=== PATIENT | female | born 1990 | race Hispanic/Latino ===

== ENCOUNTER 2017-09-29 12:20 | Emergency (ER) | payer OTHER ==
[2017-09-29 12:57] LABS: Hematocrit 41.3 % (30.3-42.9); Hemoglobin 13.8 gm/dl (10.1-14.3); Mean Corpuscular HGB Conc 33 % (30-34); Mean Corpuscular Hemoglobin 29 pg (28-32); Mean Corpuscular Volume 88 fl (79-97); Platelet Count 313 K/mm3 (140-440); Red Cell Distribution Width 12.1 % (13.2-15.2)
[2017-09-29 13:09] LABS: BUN/Creatinine Ratio 19; Blood Urea Nitrogen 13 mg/dL (7-17); Calcium 9.4 mg/dL (8.4-10.2); Hemolysis Index 3
[2017-09-29 14:44] LABS: Bacteria,Urine 1+ /HPF (Negative); Bilirubin,Urine NEG (Negative); Blood,Urine NEG (Negative); Color,Urine Straw (Yellow); Protein,Urine <15 mg/dL mg/dL (Negative); Urobilinogen,Urine < 2.0 mg/dL (<2.0); WBC,Urine < 1.0 /HPF (0.0-6.0)
[2017-09-29 14:45] LABS: RBC,Urine < 1.0 /HPF (0.0-6.0)
--- NOTE | 2017-09-29 16:43 | Emergency Department Report ---
ED Seizure HPI - General Chief Complaint: Syncope Stated Complaint: SYNCOPE Time Seen by Provider: 09/29/17 16:16 Source: patient Mode of arrival: Ambulatory Limitations: No Limitations - History of Present Illness Initial Comments: Mrs. King is a healthy 27-year-old female who presents after possible seizure on a flight from [place]. Her witnessed the episode. Just prior to the episode she felt ill. She felt nauseous. He then witnessed her eyes rolling back into the back of her head. Herright side became tense. She was dazed after the episode. She felt as if she may have had mild urinary incontinence. The episode occurred during the middle of the . The crew continued on to [place]. Her is a [employer] pilot. He agreed with continuing onto [place]. She feels well now. She feels a little tired. She woke up 3 AM. She denies chest pain. Denies shortness of breath. Denies palpitations. She takes meloxicam intermittently for knee pain related to physical activity. She is a runner. She takes oral contraceptive medications. She's been taking these pills for 5 years. She did miss 2 days of medications. She feels this is the possible reason she missed her period. Recently she had more severe menstrual cramps than normal. She took ibuprofen last night. She denies head injury. She has had a syncopal episode 6-7 years ago. At that instance, sShe recalls standing up and then passing out while getting out of the bath. Family history notable for grandfather epilepsy. Mother has lupus and Sincere 's thyroiditis. MD Complaint: possible seizure Description of Episode: loss of consciousness, tonic-clonic movement, bladder incontinence -: second(s) (15) Witnessed:: Yes Trauma: No Seizure History: none Place: other (airplane during flight) Possible Precipitating Event: lack of sleep Associated Symptoms: denies other symptoms Treatments Prior to Arrival: none - Related Data Allergies Allergy/AdvReac Type Severity Reaction Status Date / Time No Known Allergies Allergy Unverified 09/29/17 12:28 ED Review of Systems ROS: Stated complaint: SYNCOPE Other details as noted in HPI Comment: All other systems reviewed and negative Constitutional: denies: fever, malaise Respiratory: denies: cough Cardiovascular: denies: chest pain ED Past Medical Hx - Past Medical History Previous Medical History?: No - Surgical History Past Surgical History?: No - Family History Family history: other (epilepsy, lupus, thyroid disease) - Social History Smoking Status: Never Smoker Substance Use Type: None, Other (drinks approximately 4 glasses of wine weekly) ED Physical Exam - General Limitations: No Limitations General appearance: alert, in no apparent distress - Head Head exam: Present: atraumatic, normocephalic - Eye Eye exam: Present: normal appearance - ENT ENT exam: Present: mucous membranes moist - Neck Neck exam: Present: normal inspection - Respiratory Respiratory exam: Present: normal lung sounds bilaterally. Absent: respiratory distress, wheezes, rales, rhonchi - Cardiovascular Cardiovascular Exam: Present: regular rate, normal rhythm, normal heart sounds. Absent: systolic murmur, diastolic murmur, rubs, gallop - GI/Abdominal GI/Abdominal exam: Present: soft, normal bowel sounds. Absent: distended, tenderness, guarding, rebound - Extremities Exam Extremities exam: Present: normal inspection - Back Exam Back exam: Present: normal inspection - Neurological Exam Neurological exam: Present: alert, oriented X3, CN II-XII intact, normal gait. Absent: motor sensory deficit, reflexes normal - Psychiatric Psychiatric exam: Present: normal affect, normal mood - Skin Skin exam: Present: warm, dry, intact, normal color. Absent: rash ED Course Vital Signs 09/29/17 09/29/17 12:23 16:06 Temperature 98.2 F 98.3 F Pulse Rate 62 64 Respiratory 18 16 Rate Blood Pressure 119/68 Blood Pressure 109/58 [Left] O2 Sat by Pulse 99 100 Oximetry ED Medical Decision Making - Lab Data Result diagrams: 09/29/17 12:33 09/29/17 12:33 Laboratory Results - last 24 hr 09/29/17 09/29/17 09/29/17 12:33 12:33 12:33 WBC 6.9 RBC 4.70 Hgb 13.8 Hct 41.3 MCV 88 MCH 29 MCHC 33 RDW 12.1 L Plt Count 313 Sodium 137 Potassium 4.4 Chloride 99.2 Carbon Dioxide 26 Anion Gap 16 BUN 13 Creatinine 0.7 Estimated GFR > 60 BUN/Creatinine Ratio 19 Glucose 124 H POC Glucose Calcium 9.4 HCG, Quant < 2 Urine Color Urine Turbidity Urine pH Ur Specific [place] Urine Protein Urine Glucose (UA) Urine Ketones Urine Blood Urine Nitrite Urine Bilirubin Urine Urobilinogen Ur Leukocyte Esterase Urine WBC (Auto) Urine RBC (Auto) U Epithel Cells (Auto) Urine Bacteria (Auto) 09/29/17 09/29/17 12:40 13:47 WBC RBC Hgb Hct MCV MCH MCHC RDW Plt Count Sodium Potassium Chloride Carbon Dioxide Anion Gap BUN Creatinine Estimated GFR BUN/Creatinine Ratio Glucose POC Glucose 141 H Calcium HCG, Quant Urine Color Straw Urine Turbidity Clear Urine pH 8.0 H Ur Specific [place] 1.008 Urine Protein <15 mg/dl Urine Glucose (UA) Neg Urine Ketones Neg Urine Blood Neg Urine Nitrite Neg Urine Bilirubin Neg Urine Urobilinogen < 2.0 Ur Leukocyte Esterase Sm Urine WBC (Auto) < 1.0 Urine RBC (Auto) < 1.0 U Epithel Cells (Auto) < 1.0 Urine Bacteria (Auto) 1+ Vital Signs - 24 hr 09/29/17 09/29/17 12:23 16:06 Temperature 98.2 F 98.3 F Pulse Rate 62 64 Respiratory 18 16 Rate Blood Pressure 119/68 Blood Pressure 109/58 [Left] O2 Sat by Pulse 99 100 Oximetry - EKG Data 09/29/17 16:44 NSR nl rate nl axis nl intervals no ST-T signs of ischemia no ST elevation Rate 60 bpm time obtained 1654 09/29/17 16:57 - Radiology Data Radiology results: report reviewed, image reviewed - Medical Decision Making Mrs. King is a healthy 27 yo female who presents with possible seizure during a flight from [place] to [place]. She takes Meloxicam on an intermittent basis. She did not sleep as much as she usually does. She could' ve possibly had a seizure. No indication of pulmonary embolism. No indication of cardiac arrhythmia. No remote head injury. With the plannned lengthy flight to [facility], and patient wantto know if I recommended continuing on their journey. I did tell them that there is a risk that the episode could recur. However it was a fleeting episode that lasted less than 1 minute. I feel the worse case scenario is a repeat seizure. I gave appropriate seizure precautions. I encouraged her to not swim. I informed her that she is not allowed to drive until she is cleared by her physician. Critical care attestation.: If time is entered above; I have spent that time in minutes in the direct care of this critically ill patient, excluding procedure time. ED Disposition Clinical Impression: Seizure Disposition: [id number] TO HOME OR SELFCARE Is pt being admited?: No Does the pt Need Aspirin: No Condition: Stable Instructions: New-Onset Seizure in Adults (ED) Additional Instructions: Please see your primary physician once you return from [place]. Referrals: PRIMARY CARE, [Primary Care Provider] - 3-5 Days Time of Disposition: 18:25
--- NOTE | 2017-09-29 18:24 | Cat Scan Report ---
FINAL REPORT EXAM: CT HEAD/BRAIN WO CON HISTORY: seizure COMPARISON: None available. TECHNIQUE: Axial images obtained skull base through vertex. FINDINGS: No acute intracranial hemorrhage, midline shift or pathologic extra axial fluid collection. Ventricles and cisterns are normal in size and configuration for the patient's age. Martinez-white differentiation preserved. Calvarium grossly intact. Ocular globes are grossly unremarkable. Mild mucosal thickening the paranasal sinuses. Mastoid air cells are clear. IMPRESSION: No grossly acute intracranial abnormality.
[2017-09-29 18:31] VITALS: BP 118/70
== END 2017-09-29 18:30 | disposition home or self-care (01) ==
LOC: ED 12:20
DX: R56.9 Unspecified convulsions (principal); R11.0 Nausea; N39.498 Other specified urinary incontinence; R10.2 Pelvic and perineal pain
CPT/HCPCS: 36415; 70450; 80048; 81001; 82962; 84702; 85027; 93005; 93010